=== PATIENT | female | born 1965 | race Hispanic/Latino ===

== ENCOUNTER 2017-04-11 11:11 | Emergency (ER) | payer OTHER ==
[~2017-04-11] VITALS: Ht 149.9 cm; Wt 70.9 kg
[2017-04-11 12:36] LABS: HEMATOCRIT 43.3 % (36.0-46.0); HEMOGLOBIN 14.5 G/DL (11.9-15.5); MCH 26.7 PG (29.0-34.0); MCHC 33.5 G/DL (30.0-36.0); MCV 79.6 FL (83-99); PLATELET COUNT 292 K/uL (156-360); RBC DIS.WIDTH-CV 15.7 % (11.8-14.6); RBC DIS.WIDTH-SD 44.4 % (39-53); RED BLOOD COUNT 5.44 M/uL (3.80-5.20); WHITE BLOOD COUNT 6.7 K/uL (4.1-10.2)
[2017-04-11 12:48] LABS: ALBUMIN 4.2 g/dL (3.2-4.8); CHLORIDE 111 mEq/L (99-109); POTASSIUM 3.9 mEq/L (3.7-5.4); SODIUM 142 mEq/L (136-147)
[2017-04-11 12:50] LABS: GLUCOSE 97 mg/dL (70-99)
[2017-04-11 12:51] LABS: TOTAL PROTEIN 7.5 g/dL (6.4-8.3)
[2017-04-11 12:52] LABS: TOTAL BILIRUBIN 1.6 mg/dL (0.0-1.0)
[2017-04-11 12:54] LABS: ALKALINE PHOSPHATASE 98 IU/L (3-129); CREATININE 0.8 mg/dL (0.6-1.3)
[2017-04-11 12:55] LABS: GFR ESTIMATE (CALCULATED) > 59 mL/min/; UREA NITROGEN (BUN) 18 mg/dL (9-23)
[2017-04-11 12:56] LABS: AST (GOT) 35 IU/L (2-34)
[2017-04-11 12:57] LABS: ALT (GPT) 52 IU/L (3-49)
[2017-04-11 13:29] LABS: APPEARANCE SL.HAZY ((CLEAR)); BILIRUBIN NEGATIVE; BLOOD NEGATIVE; COLOR YELLOW ((YELLOW)); GLUCOSE (STRIP) NEGATIVE; KETONES NEGATIVE; LEUKOCYTES MODERATE; NITRITE NEGATIVE; PROTEIN (STRIP) NEGATIVE; SPECIFIC GRAVITY 1.025 (1.000-1.030); UROBILINOGEN 0.2 MG/DL (0.2-1.0)
[2017-04-11 13:45] LABS: BACTERIA RARE /HPF; EPITHELIAL CELLS RARE /HPF; MUCUS 2+ /LPF; RED BLOOD CELLS 0-5 /HPF (0-5); UCUL ADDED? NO; WHITE BLOOD CELLS 0-5 /HPF (0-5)
[2017-04-11] MEDS ORDERED: ZOFRAN ODT8 MG PO (17:59)
[2017-04-11 18:14] VITALS: BP 130/68
== END 2017-04-11 18:16 | disposition home or self-care (01) ==
LOC: EME 11:11
DX: R11.2 Nausea with vomiting, unspecified (principal); R10.13 Epigastric pain; E78.5 Hyperlipidemia, unspecified; Z87.891 Personal history of nicotine dependence
CPT/HCPCS: 76705; 80053; 81003; 85027; 99281; 99283

== ENCOUNTER 2017-09-05 08:51 | Day surgery (SDC) | payer OTHER ==
[~2017-09-05] VITALS: Ht 149.9 cm; Wt 71.2 kg
[~2017-09-05 08:51] MED LIST: BREO ELLIPTA I1 EACH IH; LIPITOR10 MG PO; PROAIR HFA8.5 GM IH; SYNTHROID25 MCG PO; ZOFRAN ODT8 MG PO
[2017-09-05 09:23] VITALS: BP 128/72
[2017-09-05 15:19] VITALS: BP 89/54
[2017-09-05 19:40] VITALS: BP 103/56
[2017-09-05 23:35] VITALS: BP 109/58
[2017-09-06 03:20] VITALS: BP 90/55
[2017-09-06 06:21] LABS: CHLORIDE 109 MEQ/L (99-109); CREATININE 0.9 MG/DL (0.6-1.3); GFR ESTIMATE (CALCULATED) > 59 mL/min/; GLUCOSE 117 mg/dL (70-99); POTASSIUM 4.1 MEQ/L (3.7-5.4); SODIUM 141 MEQ/L (136-147); UREA NITROGEN (BUN) 12 mg/dL (9-23)
[2017-09-06 06:22] LABS: HEMATOCRIT 39.4 % (36.0-46.0); MCH 26.4 PG (29.0-34.0); MCV 80.1 FL (83-99); PLATELET COUNT 271 K/uL (156-360); RBC DIS.WIDTH-CV 15.3 % (11.8-14.6); RBC DIS.WIDTH-SD 44.3 % (39-53); RED BLOOD COUNT 4.92 M/uL (3.80-5.20); WHITE BLOOD COUNT 13.9 K/uL (4.1-10.2)
[2017-09-06 08:16] VITALS: BP 88/56
[2017-09-06] MEDS ORDERED: TRAMADOL HCL50 MG PO (09:24)
== END 2017-09-06 09:54 | disposition home or self-care (01) ==
LOC: SDC 08:51 → 2SOUTH 12:10 → ENRESERV 12:48 → SDC 13:36 → 2EASTP 14:30
PROVIDERS: Obstetrics & Gynecology Gynecologic Oncology
DX: D07.1 Carcinoma in situ of vulva (principal); L28.0 Lichen simplex chronicus; N95.0 Postmenopausal bleeding; E78.5 Hyperlipidemia, unspecified; E03.9 Hypothyroidism, unspecified; Z86.73 Personal history of transient ischemic attack (TIA), and cerebral infarction without residual deficits; Z87.891 Personal history of nicotine dependence
CPT/HCPCS: 80048; 85027; 86850; 86900; 86901; 88305; 88307; 88341 TC; 88342 TC; 94799; G0378; J0690; J1170; J2250; J2405; J3010; Q0175